=== PATIENT | female | born 1975 | race Caucasian/White ===

== ENCOUNTER → 2020-09-17 | Outpatient (CLI) | payer BC, SELFPAY ==
[2020-09-17 14:40] VITALS: BMI 37.3
== END | disposition home or self-care (01) ==
LOC: LABSPEC 17:04
PROVIDERS: PCP Family Medicine; Referring Provider Obstetrics & Gynecology; Visit Provider Obstetrics & Gynecology
DX: R30.0 Dysuria (principal)
CPT/HCPCS: 87077; 87086; 87088; 87186

== ENCOUNTER 2020-11-13 06:03 | Day surgery (SDC) | payer BC, SELFPAY ==
[2020-09-17 14:40] VITALS: BMI 37.3
[2020-11-05 13:51] VITALS: BMI 37.3
[2020-11-12 10:11] LABS: Absolute Lymphocyte Count 2.22 X10^3/uL (0.83-4.51); Absolute Neutrophil Count 4.1 X10^3/uL (2.0-7.7); Basophil% 1.3 % (0-1); Eosinophil# 0.59 X10^3/uL; Eosinophils% 7.8 % (0-5); Hematocrit 44.9 % (37-47); Hemoglobin 14.9 g/dL (12.0-15.0); Lymphocyte # 2.22 X10^3/ul (0.83-4.51); Lymphocyte % 29.3 % (19-41); Mean Corp Hgb Conc 33.2 g/dL (32-36); Mean Corpuscular Hgb 29.6 pg (27.0-32.0); Mean Corpuscular Volume 89.3 fL (81-99); Monocyte# 0.53 X10^3/uL; NRBC Flagged by Analyzer 0 % (0-5); Neutrophil # 4.11 X10^3/uL (2.7-7.7); Neutrophil % 54.3 % (47-70); Platelet Count 360 K/mm3 (150-450); RBC Distribution Width CV 12.3 % (11.6-14.6); Red Blood Count 5.03 M/mm3 (4.2-5.4); White Blood Count 7.6 K/mm3 (4.4-11.0)
[2020-11-12 10:31] LABS: Magnesium 2.1 mg/dL (1.6-2.6)
[2020-11-13] VITALS (12 sets, daily range): BP systolic 129–148; BP diastolic 71–107; PULSE 73–102; RESP 16; TEMP 35.1–37; O2SAT 89–98; BMI 36.6
[2020-11-13 06:28] LABS: Internal QC Validated? YES +Cl - CLEAR BKGD; Pregnancy, Urine Negative Negative
[2020-11-13] MEDS: Enoxaparin 40 MG/0.4 ML Syringe SC (07:00)
[2020-11-13] MEDS: dexAMETHasone 10 MG/ML Vial 8 MG IV (07:00)
[2020-11-13] MEDS: Gabapentin 600 MG Tablet PO (07:00)
[2020-11-13] MEDS: Celecoxib 200 MG Capsule 400 MG PO (07:00)
[2020-11-13] MEDS: Lactated Ringers 1,000 ML 40 ML IV (07:00)
[2020-11-13] MEDS: Acetaminophen 500 MG Tablet 1000 MG PO (07:00)
[2020-11-13] MEDS: Scopolamine 1mg/72hr Patch 1 PATCH TD (07:13)
--- NOTE | 2020-11-13 07:24 | HP.PCM_ITS ---
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 Celine Edouard MD) Anxiety and depression Hypertension Surgical History H/O dilation and curettage Family History Father Hypertension Unknown Diabetes Grandmother Breast cancer Social History (Updated 09/18/20 @ 11:[address] 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 Female Reproductive History Menopausal Symptoms: No hot flashes, No night sweats, No weight change, No mood changes, No difficulty concentrating, No sleep problems and No change in libido Pregancy History 4 Elective abortions Hx Para 2 Spontaneous abortions 2 Hx # Term Pregnancies Ectopic pregnancies Hx # Pregnancies Multiple births # of living children 2 Past Pregnancies Del. Date Name GA/Weeks Outcome Route Bth Weight Gen Labor Lgth Anesthesia Del Locatn Provider FOB Unknown 2001 Rene live - full term Burger Unknown 2004 Adiel live - full term Delivery Date: No notes to display Delivery Date: Sandhya Valenzuela Const Constitutional: Denies fatigue, night sweats, weight gain or weight loss ENT ENT: Reports system reviewed and no additional complaints, except as documented Cardio Card: Denies chest pain Resp Resp: Denies cough or dyspnea GI GI: Reports as per HPI; Denies constipation, nausea or vomiting : Reports as per HPI; Denies hot flashes, nipple discharge, vaginal discharge, vaginal dryness, vaginal odor or vaginal pruritus Musc Musc: Denies arthralgias, back pain or muscle weakness Skin Skin/Breast: Denies alopecia, change in hair, dry skin, breast mass, breast pain, breast skin changes or nipple discharge Neuro Neuro: Reports system reviewed and no additional complaints, except as documented Psych Psych: Reports system reviewed and no additional complaints, except as d ocumented; Denies change in libido or difficulty concentrating Endo Endo: Denies cold intolerance, excessive sweating, heat intolerance or polydipsia Kwasi/Lymph Hematologic/Lymphatic: Denies easy bleeding, Denies easy bruising and Denies lymphadenopathy Exam Const General: cooperative, healthy appearing, comfortable, no acute distress and well developed Orientation: alert [facility] Head: normal to inspection and normocephalic Ears: hearing grossly normal bilaterally and external ears normal Nose: external nose normal and nares normal Face and sinus: normal facial exam Neck Neck: normal visual inspection and no lymphadenopathy Thyroid: thyroid normal Chest Chest palpation & inspection: normal inspection of the chest Resp Effort & Inspection: normal respiratory effort Auscultation: clear to auscultation bilaterally Cardio Rate: regular rate Rhythm: regular rhythm Heart Sounds: S1 normal and S2 normal GI Inspection: normal to inspection and non-distended Palpation: soft and no hepatosplenomegaly General: bladder normal to palpation External Female Exam: normal external appearance and normal appearance of the urethra Urethra: normal appearance of the urethra, normal palpation and no discharge Speculum Exam - Vagina: normal appearance of the vagina and normal vaginal discharge Speculum Exam - Cervix: normal appearance of the cervix and nontender Bimanual Exam- Vagina & Uterus: normal bimanual exam, uterine size normal, bladder normal to palpation, uterine shape normal, No tender, uterine mobility normal, consistency normal, normal palpation and non-tender Bimanual Exam- Adnexa, other: normal adnexae, adnexae mobile, no masses and normal Pelvic Support: normal Musc Other: gross motor intact no deficits, full bilateral strength Skin General: no rashes or lesions noted Neuro General: patient alert, patient awake, moves all extremities and no focal motor deficits Motor: muscle tone normal throughout Extrem General: normal to inspection and no pedal edema Psych Appearance: grossly normal Mental Status: mental status grossly normal Affect: normal affect Speech and Movement: speech and movement normal Coding Level of Care Code No Charge Diagnoses Uterine prolapse N81.4 Rectocele N81.6 Assessment and Plan Assessment and Plan (1) Uterine prolapse: Status: Acute Comment: plan TVH BS. SDS (2) Rectocele: Status: Acute Comment: per dr stock- 09/25/20 proceed with hyst w/o pelvic recontruction, reevaluate 3 mo postop Plan - Dr. Celine Edouard MD: After discussing the patient's diagnosis and treatment plan options, patient wishes to proceed with surgical management. I have discussed with the patient the risks, benefits, and alternatives of the procedure which include but are not limited to risks of anesthesia, bleeding, infection, possible damage to bowel, bladder, or surrounding vasculature which could lead to additional surgery to evaluate any complications. Patient agrees to procedure and wishes to proceed. ACOG/uptodate references given for additional information regarding procedure. UPDATE- I have seen the patient and performed any clinically relevant updates to the history and physical exam. Celine Edouard MD
[2020-11-13 08:10] LABS: Bedside Glucose 133 mg/dL (70-110)
--- NOTE | 2020-11-13 08:10 | HYST_PTH ---
PATIENT: MELITON STANTON LOC: [facility] [place] U#:[id number] AGE/SX: 44/F ROOM: RE11/13/[address]: Dr. Celine Edouard MD : 1975 BED: DIS: 11/13/2020 SPEC #: [id number] RECD: 11/13/20 10:13 STATUS: CHRISTOPHER REGil #: [id number] SANTI: 11/13/20 08:[address]: Celine Edouard DEPT: SURGICAL PATHOLOGY RECD BY: Aisha Spencer ENTERED: 11/13/20 10:32 SP TYPE: HYSTERECT OTHR DR: MD Alivia Mera PA-C Tissues: Uterus, NOS Procedures: Surgery Specimen Level V HEADER OPERATION: ERAS, vaginal hysterectomy, bilateral salpingectomy PRE-OP DIAGNOSIS: Rectocele, uterine prolapse TISSUE SUBMITTED: Uterus, bilateral fallopian tubes MICROSCOPIC DIAGNOSIS Uterus and bilateral fallopian tubes, vaginal hysterectomy and bilateral salpingectomy: Cervix ? mild chronic inflammation. Endometrium ? proliferative endometrium. Myometrium ? intramural leiomyomas. Bilateral fallopian tubes - no pathologic diagnosis. KYLIE:amari 11/14/2020 MICROSCOPIC DESCRIPTION Slides are reviewed. GROSS DESCRIPTION Received in fixative is one container labeled with the patient's name and designated uterus. The specimen consists of a uterus with attached cervix and two fragments of detached fallopian tubes. The uterus with cervix measures 10.5 x 6 x 5.5 cm and weighs 122 gm. The ectocervix is unremarkable. The cervical os is round in contour. The endocervical canal measures 4 cm in length and is grossly unremarkable. The triangular endometrial cavity measures 4.3 x 3.8 cm. The light douglas endometrium measures up to 0.2 cm in thickness. Sections of the myometrium reveals a 1 cm douglas myometrial mass resembling a leiomyoma. The myometrium measures 2.5 cm in greatest thickness. The fallopian tube segments average 5 cm in length and 0.5 cm in average diameter. The fimbriated ends are grossly unremarkable. Cycling Instructor sections are submitted in nine cassettes as follows: 1 - anterior cervix, 2??posterior cervix, 3 & 4 - anterior uterine wall, 5 & 6 - posterior uterine wall, 7 - myometrial mass, 8??one fallopian tube, 9 - the other fallopian tube. / AM:amari 11/13/20 TC:4 CPT: 61765
--- NOTE | 2020-11-13 08:12 | OP.PCM_ITS ---
Problems Associated Problem List Diagnoses (1) Rectocele: (2) Uterine prolapse: Report of Operation Date of Procedure: 11/13/20 Pre-Operative Diagnosis: see problem list Post-Operative Diagnosis: same Surgery/Procedure Performed:: TVH BS Description of Surgical Findings:: moderate uterine prolapse, mildly enlarged uterus, boggy appearance suggestive of adenomyosis commercial real estate sales manager: Kimberly Hartman Type of Anesthesia: General Specimen's removed: uterus, tubes Drains: mazariegos Estimated Blood Loss (mL): 150 Fluids Replaced: crystalloid Description of Procedure: Patient was taken to the operating room and was placed under general anesthesia was prepped and draped in normal sterile fashion in the dorsal lithotomy position. Preoperative antibiotics and SCDs and Mazariegos catheter was placed inside the bladder. Weighted speculum was placed in the vagina and the anterior and posterior lip of the cervix was grasped with 2 Adriana clamps and circumferentially injected with dilute vasopressin. A circumferential incision was made with a scalpel and the posterior cul-de-sac was entered into sharply and a longneck speculum was placed. The anterior cul-de-sac was also dissected down and entered into sharply and the uterosacral ligaments were clamped cut and suture ligated bilaterally followed by the cardinal ligaments which were Clamped cut and suture ligated bilaterally with 0 Monocryl. The uterus serially descended and progressive bites were taken bilaterally up to the level of the utero-ovarian ligament bilaterally which was clamped transected and double ligated with 0 Monocryl suture and 0 Vicryl free tie. Bilateral fallopian tubes and ovaries were well visualized and noted be within normal limits and the bilateral fallopian tubes were transected across the base with a Acry clamp and removed and sutured with 0 Vicryl suture. Excellent hemostasis was noted. Posterior peritoneum was reapproximated with 3-0 Vicryl and a modified Paz stitch was placed through the posterior vaginal cuff and bilateral uterosacral ligaments across the posterior cul-de-sac skimming along to provide apical support to the vagina with 2-0 PDS. The vagina was closed with [id number] 0 Vicryl pop offs including the posterior and anterior peritoneum in the reapproximation. Excellent hemostasis was noted. All instruments removed from the vagina clear urine was noted at the end of the procedure and patient was awoken and taken recovery in stable condition. Grafts/Implants Used: none Complications none Admit VTE Documentation VTE Present on Admission: No VTE Mechan Device Prophylaxis: SCD's VTE Pharm Prophylaxis ordered?: Yes Multi Select Codes Urinary/Genital Urinary/Genital CPT Codes: 57946 TVH+BS/O <250gr uterus
--- NOTE | 2020-11-13 08:14 | PCM.DC ---
Discharge Instructions Diet Discharge Diet: No restrictions Activity Discharge Activity: Return to Normal Activity, May Not Drive (while taking narcotic pain medications.) and May Shower May resume sexual activity in: 6-8 weeks Weight Bearing Status: Full weight bearing Dressing / Incision Call your doctor if your incision/area has: Continuous Slow Oozing, Sudden Increased Bleeding, Increased Pain/ Swelling, Increased Redness and Foul Smelling Discharge Call your doctor if you observe: Fever of 101 or Higher, Inability to urinate, Inability to have a bowel movement and Using more than 1 pad per hour Suture Line Care: Avoid Pulling/Pushing and Avoid Pinching/Bending Remove Dressing in: 1 week (if present) Cleanse incision/area with: Soap & Water and Keep Dressing Clean & Dry Follow Up Care Please Follow Up With: Celine Edouard MD When: Call to make an appointment with your doctor for a postop visit in 2 and 6 weeks. Test Results: Test results from this visit will be discussed in further detail at your follow-up appointment, if applicable. Discharge Plan Admission Primary Reason for Your Visit: vaginal hysterectomy Attending Provider: Celine Edouard Primary Care Provider: Alivia Mann Consulting Providers: Coy Harrington Discharge Orders/Prescriptions Prescriptions: New naproxen 250 MG tablet 250 - 500 mg PO Q8H PRN PRN (Reason: MILD PAIN) Qty: 30 RF: 1 oxycodone-acetaminophen [Endocet] 5-325 mg tablet 1 tab PO Q4H PRN (Reason: pain) 7 Days Qty: 20 RF: 0 Continued fluoxetine [Prozac] 20 mg capsule 20 mg PO DAILY RF: 0 losartan 100 mg tablet 100 mg PO DAILY RF: 0 Referrals / Follow Up: Celine Edouard MD [STAFF PHYSICIAN] - Alivia Mann PA-C [Primary Care Provider] -
[2020-11-13] MEDS: Cefazolin 2 GM in 0.9% Normal Saline 100 ML IV (08:25)
[2020-11-13] MEDS: Vasopressin 20 UNITS/ML Vial (08:30)
[2020-11-13] MEDS: Lactated Ringers 1,000 ML 70 ML IV (10:01)
[2020-11-13] MEDS: Ondansetron 4 MG/2 ML Vial IV (10:40)
--- NOTE | 2020-11-13 11:38 | SUR.PHASEI ---
AT 1107, FAMILY UPDATE ON PATIENT'S STATUS. INFORMED PATIENT WOULD REMAIN IN PACU FOR ANOTHER HOUR
--- NOTE | 2020-11-13 11:41 | SUR.PHASEI ---
AT APPROXIMATELY 11:15, PATIENT STATES SHE IS VERY WARM. ASKED TO HAVE WARMING BLANKET REMOVED. NURSE CHANGED PULSE OX MONITORING TO ADHESIVE SENSOR. PULSE OX SATURATION IMMEDIATELY ELEVATED TO 98%. PATIENT CHANGED TO 4L/NC PER PATIENT REQUEST TO REMOVE MASK.
[2020-11-13] MEDS: Ketorolac 30 MG/ML Syringe IV (13:03)
[2020-11-13 14:14] LABS: Hematocrit 44.8 % (37-47); Mean Corp Hgb Conc 33.5 g/dL (32-36); Mean Corpuscular Hgb 29.8 pg (27.0-32.0); Mean Corpuscular Volume 88.9 fL (81-99); Mean Platelet Vol. 10.9 fl (6.2-12.0); Platelet Count 307 K/mm3 (150-450); RBC Distribution Width CV 12.1 % (11.6-14.6); RBC Distribution Width SD 39.8 fl (35.1-43.9); Red Blood Count 5.04 M/mm3 (4.2-5.4)
== END 2020-11-13 15:01 ==
LOC: SDC 06:04 → AC 06:04
PROVIDERS: Anesthesiology; PCP Family Medicine; Referring Provider Obstetrics & Gynecology; Visit Provider Obstetrics & Gynecology
PROC: (CPT 58260; principal; 2020-11-13 07:50)
DX: N81.4 Uterovaginal prolapse, unspecified (principal); N81.6 Rectocele; N72 Inflammatory disease of cervix uteri; D25.1 Intramural leiomyoma of uterus; Z20.822 Contact with and (suspected) exposure to COVID-19; I10 Essential (primary) hypertension; F32.9 Major depressive disorder, single episode, unspecified; F41.9 Anxiety disorder, unspecified; Z79.899 Other long term (current) drug therapy
CPT/HCPCS: 00944; 58262; 36415; 81025; 82962; 83735; 85025; 85027; 86850; 86900; 86901; 87426; 88307; C9803; J7120; J2405